=== PATIENT | female | born 1985 | race Caucasian/White ===

== ENCOUNTER 2018-05-29 09:32 | Emergency (ER) | payer SELFPAY ==
[~2018-05-29] VITALS: Ht 170.2 cm; Wt 66.3 kg
[2018-05-29] MEDS ORDERED: IV NORMAL SALINE 1,000ML 1,000 ML IV ONE (10:15)
[2018-05-29 10:26] LABS: BASO % 0 % (0-3); EOS % 0 % (0-3); HEMATOCRIT 41.4 % (36.0-47.0); HEMOGLOBIN 14.2 g/dL (12.0-15.5); LYMPH # 0.6 x10^3/uL (1.0-4.8); LYMPH % 9 % (24-48); MEAN CORPUSCULAR HEMOGLOBIN 31 pg (25-35); MEAN CORPUSCULAR HGB CONC 34 g/dL (31-37); MEAN CORPUSCULAR VOLUME 92 fL (79-100); MONO # 0.2 x10^3/uL (0.0-1.1); MONO % 3 % (0-9); NEUT % 88 % (31-73); PLATELET COUNT 240 x10^3/uL (140-400); RED BLOOD COUNT 4.52 x10^6/uL (3.50-5.40); RED CELL DISTRIBUTION WIDTH 13.6 % (11.5-14.5); WHITE BLOOD COUNT 6.8 x10^3/uL (4.0-11.0)
[2018-05-29] MEDS ORDERED: ONDANSETRON PF 4 MG/2 ML VIAL. IV ONE (10:30)
--- NOTE | 2018-05-29 10:34 | PHYS DOC ---
Past History Past Medical History: Endometriosis, GERD, IBS Past Surgical History: Tonsillectomy Alcohol Use: Rarely Drug Use: Marijuana Social History Narrative: recent use Adult General Chief Complaint Chief Complaint: NAUSEA/VOMITING/DIARRHEA HPI HPI 32-year-old female presents with vomiting and abdominal pain. The patient was diagnosed 3 days ago with UTI and placed on Macrobid. Her last dose is supposed to be today. The patient woke up at 5 AM with diffuse abdominal cramping, nausea , and vomiting. Since she had multiple episodes, she decided to come the emergency room. There is no particular area of her abdomen hurts more than the others. She has not checked for fever, but has had chills. Review of Systems Review of Systems Constitutional: Denies fever or chills [] Eyes: Denies change in visual acuity, redness, or eye pain [] HENT: Denies nasal congestion or sore throat [] Respiratory: Denies cough or shortness of breath [] Cardiovascular: No additional information not addressed in HPI [] GI: abdominal pain, nausea, vomiting [] : Denies dysuria or hematuria [] Musculoskeletal: Denies back pain or joint pain [] Integument: Denies rash or skin lesions [] Neurologic: Denies headache, focal weakness or sensory changes [] Endocrine: Denies polyuria or polydipsia [] All other systems were reviewed and found to be within normal limits, except as documented in this note. Current Medications Current Medications Current Medications Medications (Trade) Dose Ordered Sig/Shivam Start Time Stop Time Status Last Admin Dose Admin Ondansetron HCl (Zofran) 4 mg 1X ONCE 05/29/18 10:30 05/29/18 10:31 05/29/18 10:12 4 MG Sodium Chloride 1,000 ml @ 1,000 mls/hr 1X ONCE 05/29/18 10:15 05/29/18 11:14 05/29/18 10:12 1,000 MLS/HR Allergies Allergies Allergies Coded Allergies Type Severity Reaction Last Updated Verified metoclopramide Allergy Unknown 05/29/18 Yes tramadol Allergy Unknown Nausea and Vomiting 05/29/18 Yes Physical Exam Physical Exam Constitutional: Well developed, well nourished, no acute distress, non-toxic appearance. [] HENT: Normocephalic, atraumatic, bilateral external ears normal, oropharynx moist, no oral exudates, nose normal. [] Eyes: PERRLA, EOMI, conjunctiva normal, no discharge. [] Neck: Normal range of motion, no tenderness, supple, no stridor. [] Cardiovascular:Heart rate regular rhythm, no murmur [] Lungs & Thorax: Bilateral breath sounds clear to auscultation [] Abdomen: Diffuse, nonspecific abdominal tenderness.[] Skin: Warm, dry, no erythema, no rash. [] Back: No tenderness, no CVA tenderness. [] Extremities: No tenderness, no cyanosis, no clubbing, ROM intact, no edema. [] Neurologic: Alert and oriented X 3, normal motor function, normal sensory function, no focal deficits noted. [] Psychologic: Affect normal, judgement normal, mood normal. [] Current Patient Data Vital Signs Vital Signs Date Time Temp Pulse Resp B/P (MAP) Pulse Ox O2 Delivery O2 Flow Rate FiO2 05/29/18 09:42 98.2 55 16 99 Room Air Lab Results Laboratory Tests Test 05/29/18 10:10 White Blood Count 6.8 x10^3/uL (4.0-11.0) Red Blood Count 4.52 x10^6/uL (3.50-5.40) Hemoglobin 14.2 g/dL (12.0-15.5) Hematocrit 41.4 % (36.0-47.0) Mean Corpuscular Volume 92 fL (79-100) Mean Corpuscular Hemoglobin 31 pg (25-35) Mean Corpuscular Hemoglobin Concent 34 g/dL (31-37) Red Cell Distribution Width 13.6 % (11.5-14.5) Platelet Count 240 x10^3/uL (140-400) Neutrophils (%) (Auto) 88 % (31-73) H Lymphocytes (%) (Auto) 9 % (24-48) L Monocytes (%) (Auto) 3 % (0-9) Eosinophils (%) (Auto) 0 % (0-3) Basophils (%) (Auto) 0 % (0-3) Neutrophils # (Auto) 6.0 x10^3uL (1.8-7.7) Lymphocytes # (Auto) 0.6 x10^3/uL (1.0-4.8) L Monocytes # (Auto) 0.2 x10^3/uL (0.0-1.1) Eosinophils # (Auto) 0.0 x10^3/uL (0.0-0.7) Basophils # (Auto) 0.0 x10^3/uL (0.0-0.2) EKG EKG [] Radiology/Procedures Radiology/Procedures [] Impressions: EXAM: Abdomen, single view. HISTORY: Nausea and vomiting. COMPARISON: None. FINDINGS: Frontal views of the abdomen and pelvis are obtained. There are nonspecific air-filled loops of bowel within the abdomen. There is no abnormal bowel dilatation or transition point to suggest obstruction. There is a prominent right hepatic shadow which is likely physiologic. There is an incidental tampon within the vagina. IMPRESSION: Nonobstructive bowel gas pattern. Electronically signed by: Meagan Padilla MD (05/29/2018 10:35 AM) [facility] [id number] DICTATED AND SIGNED BY: MEAGAN PADILLA MD DATE: 05/29/18 1035 CC: RABIA LESLIE DO; PCP,NO ~ Course & Med Decision Making Course & Med Decision Making Pertinent Labs and Imaging studies reviewed. (See chart for details) The patient's labs are unremarkable. Her KUB is unremarkable. The patient was given 1 L normal saline and 4 mg of Zofran IV. She's had no further vomiting in the emergency room. This is likely viral gastroenteritis. I will advise supportive care and discharge her with a prescription for Zofran. She is stable for discharge at this time. [] Dragon Disclaimer Dragon Disclaimer This electronic medical record was generated, in whole or in part, using a voice recognition dictation system. Departure Departure: Impression: Primary Impression: Viral gastroenteritis Disposition: 01 HOME, SELF-CARE Condition: STABLE Referrals: PCP,NO (PCP) Patient Instructions: Viral Gastroenteritis, Ugan-mf-Diwf Scripts Ondansetron (ONDANSETRON ODT) 4 Mg Tab.rapdis 1 TAB PO PRN Q6-8HRS PRN for VOMITING, #16 TAB Prov: RABIA LESLIE DO 05/29/18 RABIA LESLIE DO May 29, 2018 10:34
[2018-05-29 10:38] LABS: ALBUMIN/GLOBULIN RATIO 1.3 (1.0-1.7); CALCIUM 8.5 mg/dL (8.5-10.1); CREATININE 0.9 mg/dL (0.6-1.0); GFR 72.6; POTASSIUM 3.4 mmol/L (3.5-5.1); TOTAL BILIRUBIN 0.8 mg/dL (0.2-1.0); TOTAL PROTEIN 7.2 g/dL (6.4-8.2)
--- NOTE | 2018-05-29 10:38 | RAD ---
EXAM: Abdomen, single view. HISTORY: Nausea and vomiting. COMPARISON: None. FINDINGS: Frontal views of the abdomen and pelvis are obtained. There are nonspecific air-filled loops of bowel within the abdomen. There is no abnormal bowel dilatation or transition point to suggest obstruction. There is a prominent right hepatic shadow which is likely physiologic. There is an incidental tampon within the vagina. IMPRESSION: Nonobstructive bowel gas pattern. Electronically signed by: Meagan Padilla MD (05/29/2018 10:35 AM) [place] [id number]
[2018-05-29] MEDS ORDERED: ONDA4TAB12 PO (10:44)
[2018-05-29 10:55] VITALS: BP 118/66
== END 2018-05-29 10:59 | disposition home or self-care (01) ==
LOC: ER 09:32
DX: A08.4 Viral intestinal infection, unspecified (principal); K21.9 Gastro-esophageal reflux disease without esophagitis; K58.9 Irritable bowel syndrome, unspecified; Z88.6 Allergy status to analgesic agent; Z88.8 Allergy status to other drugs, medicaments and biological substances
CPT/HCPCS: 36415; 74018; 80053; 83690; 85025; 96361; 96374; 99285; J2405; J7030